=== PATIENT | male | born 1965 | race Caucasian/White ===

== ENCOUNTER 2025-05-01 09:40 | Emergency (ER) | payer MEDICARE, MEDICAID ==
[~2025-05-01] VITALS: Ht 180.3 cm; Wt 84.0 kg
[~2025-05-01 09:40] MED LIST: ATOR10TA69 PO; FLUT16SP15; GABA-290 PO; IBUP-2029 PO; MIRT-90 PO; QUET400T12 PO; [UNRECOGNIZED DRUG - CODE] IM
[2025-05-01 09:46] VITALS: O2SAT 99
[2025-05-01 10:15] LABS: BASOPHILS % 0.4 % (0.0-2.0); EOSINOPHILS % 0.8 % (0.0-5.0); HEMATOCRIT. 40.0 % (42.0-52.0); HEMOGLOBIN. 14.3 g/dL (14.0-18.0); LYMPHOCYTES % 11.0 % (20.0-50.0); MEAN PLATELET VOLUME 10.7 fl (7.4-10.4); MONOCYTES % 6.4 % (2.0-8.0); NEUTROPHILS % 81.4 % (40.0-76.0); PLATELET 153 x1000/uL (130-400); RED BLOOD CELL COUNT 4.35 mill/uL (4.7-6.1); RED CELL DISTRIBUTION WIDTH 12.8 % (11.6-14.6)
[2025-05-01 10:35] LABS: CREATININE 1.2 mg/dL (0.6-1.3); UREA NITROGEN BLOOD 17 mg/dL (9-23)
[2025-05-01 11:20] LABS: CLARITY URINE CLEAR (CLEAR); COLOR URINE DARK YELLOW (YELLOW); GLUCOSE URINE NEGATIVE (NEGATIVE); KETONES URINE 2+ (NEGATIVE); LEUKOCYTE ESTERASE URINE NEGATIVE (NEGATIVE); NITRITE URINE NEGATIVE (NEGATIVE); OCCULT BLOOD URINE 2+ (NEGATIVE); PH URINE 6.5 (4.5-8.0); PROTEIN URINE TRACE (NEGATIVE); SPECIFIC GRAVITY URINE 1.028 (1.005-1.030); UROBILINOGEN URINE 1.0 E.U./dL (0.2-1.0)
[2025-05-01 11:39] LABS: BACTERIA URINE 1+; RBC URINE 15-25 /hpf (0-2); SQUAMOUS EPITHELIAL CELL URINE 1+ /lpf (RARE/1+); WBC URINE 0-2 /hpf (0-2); YEAST URINE NONE SEEN
[2025-05-01 11:44] LABS: HYALINE CASTS URINE 0-5 /lpf
[2025-05-01 12:31] LABS: ASPARTATE AMINOTRANSFERASE 28 IU/L (<34); BILIRUBIN DIRECT 0.2 mg/dL (<=3.0); BILIRUBIN TOTAL 0.5 mg/dL (0.1-1.0)
[2025-05-01 12:32] LABS: PROTEIN TOTAL 6.6 g/dL (6.0-8.3)
[2025-05-01] MEDS ORDERED: TAMS-54 MT (13:19)
[2025-05-01] MEDS ORDERED: ACET-2708 MT (13:19)
[2025-05-01 13:46] VITALS: TEMP 36.3; O2SAT 99
[2025-05-01 13:47] VITALS: BP 135/81; PULSE 89; RESP 18
[2025-05-01] MEDS: KETOROLAC 30MG/ML VIAL IM ONE (13:47)
== END 2025-05-01 13:47 | disposition home or self-care (01) ==
LOC: ER 09:40
DX: R10.84 Generalized abdominal pain (principal); E11.9 Type 2 diabetes mellitus without complications; F20.9 Schizophrenia, unspecified; F31.9 Bipolar disorder, unspecified; I10 Essential (primary) hypertension; Z79.1 Long term (current) use of non-steroidal anti-inflammatories (NSAID); Z79.899 Other long term (current) drug therapy
CPT/HCPCS: 99285; 74176; 80076; 80048; 81003; 83690; 85025; 36415; 93005; 96372; J1885

== ENCOUNTER 2025-07-04 10:55 | Emergency (ER) | payer MEDICARE, MEDICAID ==
[~2025-07-04] VITALS: Ht 180.3 cm; Wt 69.0 kg
[~2025-07-04 10:55] MED LIST changes: +ACET-2708 MT; +IBUP-1455 PO; -IBUP-2029 PO; +TAMS-54 MT
[2025-07-04 11:02] VITALS: O2SAT 98
[2025-07-04 11:48] LABS: BASOPHILS % 1.2 % (0.0-2.0); EOSINOPHILS % 2.3 % (0.0-5.0); HEMATOCRIT. 44.3 % (42.0-52.0); HEMOGLOBIN. 15.3 g/dL (14.0-18.0); LYMPHOCYTES % 29.6 % (20.0-50.0); MEAN PLATELET VOLUME 10.8 fl (7.4-10.4); MONOCYTES % 7.4 % (2.0-8.0); NEUTROPHILS % 59.5 % (40.0-76.0); PLATELET 133 x1000/uL (130-400); RED BLOOD CELL COUNT 4.70 mill/uL (4.7-6.1); RED CELL DISTRIBUTION WIDTH 13.2 % (11.6-14.6)
[2025-07-04 12:07] LABS: CREATININE 1.0 mg/dL (0.6-1.3); UREA NITROGEN BLOOD 14 mg/dL (9-23)
[2025-07-04 12:08] LABS: TROPONIN I HIGH SENSITIVITY < 4 ng/L (3.0-53)
[2025-07-04 13:27] LABS: CLARITY URINE CLEAR (CLEAR); COLOR URINE YELLOW (YELLOW); GLUCOSE URINE NEGATIVE (NEGATIVE); KETONES URINE NEGATIVE (NEGATIVE); LEUKOCYTE ESTERASE URINE NEGATIVE (NEGATIVE); NITRITE URINE NEGATIVE (NEGATIVE); OCCULT BLOOD URINE NEGATIVE (NEGATIVE); PH URINE 7.0 (4.5-8.0); PROTEIN URINE NEGATIVE (NEGATIVE); SPECIFIC GRAVITY URINE 1.005 (1.005-1.030); UROBILINOGEN URINE 0.2 E.U./dL (0.2-1.0)
[2025-07-04] MEDS: KETOROLAC 30MG/ML VIAL IV ONE (15:30)
[2025-07-04 16:10] LABS: ASPARTATE AMINOTRANSFERASE 23 IU/L (<34); BILIRUBIN DIRECT 0.1 mg/dL (<=3.0); BILIRUBIN TOTAL 0.4 mg/dL (0.1-1.0); PROTEIN TOTAL 6.9 g/dL (6.0-8.3)
[2025-07-04 16:32] VITALS: BP 120/74; PULSE 70; RESP 16; TEMP 37.2; O2SAT 98
[2025-07-04] MEDS ORDERED: TAMS-54 MT (16:45)
[2025-07-04] MEDS ORDERED: KETO10TA2 MT (16:45)
== END 2025-07-04 16:59 | disposition home or self-care (01) ==
LOC: ER 11:45
DX: N20.0 Calculus of kidney (principal); I87.8 Other specified disorders of veins; F20.9 Schizophrenia, unspecified; F31.9 Bipolar disorder, unspecified; Z79.1 Long term (current) use of non-steroidal anti-inflammatories (NSAID); Z79.899 Other long term (current) drug therapy
CPT/HCPCS: 99285; 74176; 96374; 80076; 80048; 81003; 85025; 84484; 36415; 93005; J1885